=== PATIENT | female | born 1985 | race Caucasian/White ===

== ENCOUNTER 2017-05-17 00:16 | Emergency (ER) | payer MEDICAID ==
[~2017-05-17] VITALS: Ht 162.6 cm; Wt 79.3 kg
[2017-05-17 00:22] VITALS: BP 112/71
[2017-05-17] MEDS ORDERED: KETOROLAC 30 MG/1 ML IM ONE (01:00)
[2017-05-17] MEDS ORDERED: METHOCARBAMOL 750 MG TABLET PO ONE (01:00)
[2017-05-17] MEDS ORDERED: KETOROLAC 30 MG/1 ML ONE (01:12)
[2017-05-17] MEDS ORDERED: METHOCARBAMOL 750 MG TABLET ONE (01:12)
[2017-05-17 01:29] LABS: HCG UR LOT HCG7030192
[2017-05-17 01:34] LABS: HCG UR OBC PASS
[2017-05-17 01:35] LABS: PATH.CAST-FLAG NOT PRESENT; SPERM-FLAG NOT PRESENT; SRC-FLAG NOT PRESENT; XTAL-FLAG NOT PRESENT; YLC-FLAG NOT PRESENT
== END 2017-05-17 01:53 | disposition home or self-care (01) ==
LOC: ED 01:46
DX: S39.012A Strain of muscle, fascia and tendon of lower back, initial encounter (principal); G43.909 Migraine, unspecified, not intractable, without status migrainosus; X58.XXXA Exposure to other specified factors, initial encounter; Y93.89 Activity, other specified; Y92.89 Other specified places as the place of occurrence of the external cause; Y99.8 Other external cause status
CPT/HCPCS: 81001; 81025; 87086; 96372; 99284; J1885

== ENCOUNTER 2020-06-26 13:13 | Day surgery (SDC) | payer MEDICAID ==
[~2020-06-26] VITALS: Ht 157.5 cm; Wt 73.2 kg
[2020-06-26] MEDS ORDERED: MORPHINE SULFATE 4 MG/ML, 1ML ONE (13:42)
[2020-06-26] MEDS ORDERED: ONDANSETRON 2MG/ML, 2ML ONE ×2 (13:43→16:46)
[2020-06-26] MEDS ORDERED: MORPHINE SULFATE 4 MG/ML, 1ML IVPush PRN (14:00)
[2020-06-26] MEDS ORDERED: ONDANSETRON 2MG/ML, 2ML IVPush ONE (14:00)
[2020-06-26] MEDS ORDERED: SODIUM CHLORIDE 0.9% 1,000ML IVBOLUS ONE (14:00)
--- NOTE | 2020-06-26 14:00 | NUR ---
PT MEDICATED PER AUG, PT AWARE WE NEED URINE TRAM FOR UA
--- NOTE | 2020-06-26 14:10 | NUR ---
ULTRA SOUND IN WITH PT
[2020-06-26 14:12] LABS: BASOPHILS % (AUTO) 0 % (0-1); EOSINOPHILS % (AUTO) 0 % (1-7); LYMPHOCYTES % (AUTO) 12 % (22-44); MEAN CORPUSCULAR HEMOGLOBIN 26.6 pg (27.0-34.8); MEAN CORPUSCULAR HGB CONC 33.8 g/dL (32.4-35.8); MEAN PLATELET VOLUME 8.5 fL (7.4-10.4); MONOCYTES % (AUTO) 4 % (2-9); NEUTROPHILS % (AUTO) 84 % (42-75); PLATELET COUNT 151 x10^3/uL (130-400); RED BLOOD COUNT 5.32 x10^6/uL (3.82-5.3)
[2020-06-26 14:19] LABS: ALBUMIN 3.2 g/dL (3.4-5.0); ANION GAP 5 mmol/L (5-15); CALCIUM 8.6 mg/dL (8.5-10.1); CHLORIDE 102 mmol/L (98-107)
[2020-06-26 14:24] LABS: MD NO
[2020-06-26 14:26] LABS: ALANINE AMINOTRANSFERASE 152 U/L (12-78); ALKALINE PHOSPHATASE 98 U/L (45-117); BILIRUBIN,TOTAL 0.7 mg/dL (0.2-1.0); CREATININE 0.83 mg/dL (0.55-1.02); TOTAL PROTEIN 7.4 g/dL (6.4-8.2)
[2020-06-26 15:14] LABS: MICROSCOPIC INDICATED
[2020-06-26 15:15] VITALS: BP 102/52
--- NOTE | 2020-06-26 15:27 | NUR ---
IN ROOM FOR RECHECK. PT EDUCATED ON PLAN OF CARE
[2020-06-26] MEDS ORDERED: CEFTRIAXONE PMX 1GM/50ML 50 ML IV ONE (15:30)
[2020-06-26] MEDS ORDERED: SODIUM CHLORIDE 0.9% 1,000 ML IV ONE (15:30)
[2020-06-26] MEDS ORDERED: CEFTRIAXONE PMX 1GM/50ML 50 ML ONE (15:32)
[2020-06-26] MEDS ORDERED: BUPIVACAINE/PF 0.5% ONE (15:56)
[2020-06-26] MEDS ORDERED: OXYcodone 5 MG/5 ML ORAL.SOL UDC PO PRN (16:30)
[2020-06-26] MEDS ORDERED: HYDROcodone/APAP 7.5-325MG/15ML UDC PO PRN (16:30)
[2020-06-26] MEDS ORDERED: PROMETHAZINE 25 MG/ML, 1ML IVPush PRN (16:30)
[2020-06-26] MEDS ORDERED: ACETAMINOPHEN 325 MG TABLET PO PRN (16:30)
[2020-06-26] MEDS ORDERED: morphine SULFATE 10 MG/ML, 1ML IVPush PRN (16:30)
[2020-06-26] MEDS ORDERED: HYDROmorphone 1 MG/ML, 1ML INJ IVPush PRN (16:30)
[2020-06-26] MEDS ORDERED: FENTANYL PF 100 MCG/2ML IV PRN (16:30)
[2020-06-26] MEDS ORDERED: HALOPERIDOL 5 MG/ML IV PRN (16:30)
[2020-06-26] MEDS ORDERED: MEPERIDINE/PF 25MG/0.5ML IVPush PRN (16:30)
[2020-06-26] MEDS ORDERED: NEOSTIGMINE 1 MG/ML, 10ML ONE (16:46)
[2020-06-26] MEDS ORDERED: PROPOFOL 10 MG/ML, 20ML ONE (16:46)
[2020-06-26] MEDS ORDERED: GLYCOPYRROLATE 0.2MG/1ML, 5ML ONE (16:46)
[2020-06-26] MEDS ORDERED: DEXAMETHASONE 4 MG/ML, 1ML ONE (16:46)
[2020-06-26] MEDS ORDERED: MIDAZOLAM 1 MG/ML, 2ML ONE (16:46)
[2020-06-26] MEDS ORDERED: ROCURONIUM 10MG/ML,5ML ONE (16:46)
[2020-06-26] MEDS ORDERED: SUCCINYLCHOLINE 20 MG/ML, 10ML ONE (16:46)
[2020-06-26] MEDS ORDERED: CEFOTETAN 2 GM ONE (16:46)
[2020-06-26] MEDS ORDERED: SUGAMMADEX 200 MG/2 ML IVPush ONE (16:46)
[2020-06-26] MEDS ORDERED: FENTANYL PF 250 MCG/5ML ONE (16:46)
[2020-06-26] MEDS ORDERED: OXYC-302 PO (17:34)
[2020-06-26] MEDS ORDERED: ACETAMINOPHEN 650 MG/20.3 ML UDC ONE (18:13)
[2020-06-26] MEDS ORDERED: FENTANYL PF 100 MCG/2ML ONE (18:16)
[2020-06-26] MEDS ORDERED: OXYcodone 5 MG/5 ML ORAL.SOL UDC ONE (18:16)
== END 2020-06-26 20:46 | disposition home or self-care (01) ==
LOC: ED 13:53 → OUT 13:53 → EDSTATUS 14:01 → INTOOBSV 15:53 → EDIP 15:53 → UNDOADMOB 15:53 → ED 20:46 → OUT 20:46
PROVIDERS: ATTEND Emergency Medicine
DX: K80.12 Calculus of gallbladder with acute and chronic cholecystitis without obstruction (principal); K82.8 Other specified diseases of gallbladder; Z20.822 Contact with and (suspected) exposure to COVID-19; Z79.899 Other long term (current) drug therapy
CPT/HCPCS: 36415; 47562; 76700; 80053; 81001; 83690; 84703; 85025; 87077; 87086; 87186; 87635; 88304; 93005; 96361; 96365; 96375; 99285; J0330; J0696; J1100; J2250; J2270; J2405; J2704; J2710; J3010; J7030

== ENCOUNTER 2020-06-29 15:24 | Emergency (ER) | payer MEDICAID ==
[~2020-06-29] VITALS: Ht 157.5 cm; Wt 73.0 kg
[~2020-06-29 15:24] MED LIST: OXYC-302 PO
--- NOTE | 2020-06-29 15:41 | NUR ---
ON WED PATIENT HAD SURGICAL REMOVAL OF KIDNEY STONES. THEN SINCE SHE HAS GOTTEN INCREASINGLY WEAK, LIGHT HEADED AND HEADACHE.
--- NOTE | 2020-06-29 15:50 | NUR ---
correction: removal of gallstones on wed not kidney
[2020-06-29] MEDS ORDERED: SODIUM CHLORIDE 0.9% 1,000ML IVBOLUS ONE (16:00)
[2020-06-29] MEDS ORDERED: KETOROLAC 30 MG/1 ML IVPush ONE (16:00)
[2020-06-29] MEDS ORDERED: ACETAMINOPHEN 325 MG TABLET PO ONE (16:00)
[2020-06-29] MEDS ORDERED: KETOROLAC 30 MG/1 ML ONE (16:06)
[2020-06-29] MEDS ORDERED: ACETAMINOPHEN 325 MG TABLET ONE (16:06)
[2020-06-29 16:16] LABS: BASOPHILS % (AUTO) 1 % (0-1); EOSINOPHILS % (AUTO) 0 % (1-7); LYMPHOCYTES % (AUTO) 27 % (22-44); MEAN CORPUSCULAR HEMOGLOBIN 26.5 pg (27.0-34.8); MEAN CORPUSCULAR HGB CONC 33.8 g/dL (32.4-35.8); MEAN PLATELET VOLUME 8.1 fL (7.4-10.4); MONOCYTES % (AUTO) 5 % (2-9); NEUTROPHILS % (AUTO) 68 % (42-75); PLATELET COUNT 175 x10^3/uL (130-400); RED BLOOD COUNT 4.86 x10^6/uL (3.82-5.3); RED CELL DISTRIBUTION WIDTH 12.8 % (9.6-15.2)
[2020-06-29 16:18] LABS: MD NO
[2020-06-29 16:28] LABS: ALANINE AMINOTRANSFERASE 135 U/L (12-78); ALBUMIN 2.7 g/dL (3.4-5.0); ANION GAP 5 mmol/L (5-15); CALCIUM 8.2 mg/dL (8.5-10.1); CHLORIDE 99 mmol/L (98-107); CREATININE 0.63 mg/dL (0.55-1.02)
[2020-06-29 16:30] LABS: ALKALINE PHOSPHATASE 113 U/L (45-117); BILIRUBIN,TOTAL 0.5 mg/dL (0.2-1.0); TOTAL PROTEIN 6.8 g/dL (6.4-8.2)
--- NOTE | 2020-06-29 16:41 | NUR ---
PATIENT NOT YET ABLE TO VOID
[2020-06-29 18:00] LABS: MICROSCOPIC INDICATED
[2020-06-29] MEDS ORDERED: MORPHINE SULFATE 4 MG/ML, 1ML ONE (18:37)
[2020-06-29 18:54] VITALS: BP 115/78
[2020-06-29] MEDS ORDERED: MORPHINE SULFATE 4 MG/ML, 1ML IVPush ONE (19:00)
== END 2020-06-29 18:57 | disposition home or self-care (01) ==
LOC: ED 18:50
DX: R51.9 Headache, unspecified (principal); Z20.822 Contact with and (suspected) exposure to COVID-19; E87.1 Hypo-osmolality and hyponatremia; M79.10 Myalgia, unspecified site; R53.1 Weakness
CPT/HCPCS: 36415; 71045; 80053; 81001; 83690; 85025; 87635; 93005; 96361; 96374; 99285; J1885; J7030